=== PATIENT | male | born 1970 | race Two or more races ===

== ENCOUNTER 2022-09-25 13:38 | Emergency (ER) | payer OTHER ==
[2022-09-25 14:03] VITALS: TEMP 97.4; BMI 28.4
[2022-09-25] MEDS ORDERED: ACETAMINOPHEN 1000 MG/100 ML BAG IVPB ONE (16:09)
[2022-09-25] MEDS ORDERED: LACTATED RINGERS SOLUTION 1000 ML INFUS.BAG IV ONE (17:29)
[2022-09-25 18:08] LABS: EPI CELLS 3 /uL (0-25.1); HYALINE CASTS 0 /uL (0-3.1); PH,URINE 7.5 (5.0-8.0); URINE APPEARANCE CLEAR; URINE BACTERIA 10 /uL (0-1359); URINE BILIRUBIN NEGATIVE (NEGATIVE); URINE COLOR YELLOW; URINE GLUCOSE (UA) NEGATIVE (NEGATIVE); URINE KETONE NEGATIVE (NEGATIVE); URINE LEUK ESTERASE NEGATIVE (NEGATIVE); URINE NITRITE NEGATIVE (NEGATIVE); URINE PROTEIN NEGATIVE (NEGATIVE); URINE RBC 19 /uL (0-23.9); URINE UROBILINOGEN 0.2 mg/dL (0.2-1.0); URINE WBC 2 /uL (0-25.8)
[2022-09-25] MEDS ORDERED: ACETAMINOPHEN INJECTION 100 ML IVPB ONE (18:17)
[2022-09-25 18:26] LABS: BASO % 1.4 % (0-2.0); EOS % 0.5 % (0-4.5); HEMATOCRIT 47.2 % (35.4-49); LYMPH % 19.2 % (8-40); MCH 27.4 pg (25.7-33.7); MCHC 31.9 g/dl (32.0-35.9); MEAN CELL VOLUME 85.8 fl (80-96); MEAN PLT VOLUME 8.6 fl (7.5-11.1); MONO % 4.6 % (3.8-10.2); NEUT % 74.3 % (42.8-82.8); PLATELET COUNT 168 10^3/uL (134-434); RDW 14.7 % (11.9-15.9); WHITE BLOOD COUNT 4.9 K/mm3 (4.0-10.0)
[2022-09-25 18:44] LABS: ALBUMIN 3.7 g/dl (3.4-5.0); CALCIUM 9.2 mg/dL (8.5-10.1)
[2022-09-25 18:45] LABS: BLOOD UREA NITROGEN 12.5 mg/dL (7-18)
[2022-09-25 18:49] LABS: BILIRUBIN,TOTAL 0.9 mg/dL (0.2-1)
[2022-09-25 18:59] LABS: ANISOCYTOSIS 1+; MACROCYTOSIS 0
[2022-09-25 19:24] VITALS: BP 122/70; PULSE 64; RESP 18
== END 2022-09-25 18:55 | disposition home or self-care (01) ==
LOC: JER 13:38
PROC: 3E033GC Introduction of Other Therapeutic Substance into Peripheral Vein, Percutaneous Approach (ICD-10-PCS; principal; 2022-09-25)
DX: N20.0 Calculus of kidney (principal)
CPT/HCPCS: 36415; 74176-TC; 80053; 81003; 83690; 85025; 87086; 99285-25

== ENCOUNTER 2023-11-03 04:00 | Day surgery (SDC) | payer OTHER ==
[2023-10-29 13:55] VITALS: BMI 27.9
[2023-11-03] MEDS ORDERED: LIDOCAINE HCL/PF 1% SDV 5ML VIAL ONE (07:30)
[2023-11-03] MEDS ORDERED: DEXAMETHASONE SOD PHOSPHATE 10 MG/1 ML VIAL ONE (07:30)
[2023-11-03] MEDS ORDERED: ACETAMINOPHEN 500 MG TABLET (FP) PO PRN (11:14)
[2023-11-03] MEDS: LIDOCAINE 1% P/F 10 MG/ML VIAL INF ONE (12:17)
[2023-11-03] MEDS: IOHEXOL 180 MG/1 ML ML IJ ONE ×2 (12:18→12:20)
[2023-11-03] MEDS: DEXAMETHASONE SOD PHOSPHATE 10 MG/1 ML VIAL IVPUSH ONE (12:20)
[2023-11-03 12:45] VITALS: BP 117/62; PULSE 56; RESP 18; TEMP 98.4
== END 2023-11-03 13:13 | disposition home or self-care (01) ==
LOC: JASU-SURG 04:00
PROVIDERS: ATTEND Pain Medicine Pain Medicine
PROC: 3E0R3BZ Introduction of Anesthetic Agent into Spinal Canal, Percutaneous Approach (ICD-10-PCS; 2023-11-03)
PROC: 3E0R33Z Introduction of Anti-inflammatory into Spinal Canal, Percutaneous Approach (ICD-10-PCS; principal; 2023-11-03 12:30)
DX: M54.16 Radiculopathy, lumbar region (principal)
CPT/HCPCS: 76000-TC-FY; J1100

== ENCOUNTER 2023-12-11 04:28 | Day surgery (SDC) | payer OTHER ==
[2023-12-03 13:06] VITALS: BMI 27.9
[2023-12-11] MEDS ORDERED: BUPIVACAINE HCL/PF 0.75% 10 ML VIAL ONE (07:31)
[2023-12-11] MEDS ORDERED: LIDOCAINE HCL/PF 1% SDV 5ML VIAL ONE ×2 (07:31→07:32)
[2023-12-11] MEDS ORDERED: ACETAMINOPHEN 500 MG TABLET (FP) PO PRN (08:08)
[2023-12-11] MEDS: LIDOCAINE HCL 1% PRESERVATIVE FREE - 30ML VIAL IJ ONE (11:12)
[2023-12-11] MEDS: BUPIVACAINE HCL/PF 0.75% 10 ML VIAL CAUD ONE (11:12)
[2023-12-11 12:16] VITALS: BP 125/81; PULSE 47; RESP 20; TEMP 97.8
== END 2023-12-11 11:53 | disposition home or self-care (01) ==
LOC: JASU-SURG 04:28
PROVIDERS: ATTEND Pain Medicine Pain Medicine
PROC: 3E0T33Z Introduction of Anti-inflammatory into Peripheral Nerves and Plexi, Percutaneous Approach (ICD-10-PCS; 2023-12-11)
PROC: 3E0T3BZ Introduction of Anesthetic Agent into Peripheral Nerves and Plexi, Percutaneous Approach (ICD-10-PCS; principal; 2023-12-11 11:30)
DX: M47.816 Spondylosis without myelopathy or radiculopathy, lumbar region (principal)
CPT/HCPCS: 76000-TC-FY